=== PATIENT | female | born 1940 | race Two or more races ===

== ENCOUNTER 2025-01-17 05:20 | Emergency (ER) | payer SELFPAY ==
[~2025-01-17] VITALS: Ht 149.9 cm; Wt 59.0 kg
[2025-01-17 05:22] VITALS: BP 172/72; PULSE 81; RESP 16; TEMP 97.9; O2SAT 97
== END 2025-01-17 10:01 | disposition left against medical advice (07) ==
LOC: ER 05:20
DX: R10.9 Unspecified abdominal pain (principal); R11.0 Nausea; R19.7 Diarrhea, unspecified; Z53.21 Procedure and treatment not carried out due to patient leaving prior to being seen by health care provider